=== PATIENT | female | born 1975 | race Two or more races ===

== ENCOUNTER 2016-10-13 09:01 | Emergency (ER) | payer MEDICAID, OTHER ==
[~2016-10-13] VITALS: Ht 157.5 cm; Wt 77.4 kg
[2016-10-13] MEDS ORDERED: SODIUM CHLORIDE FLUSH 10ML SYR IVF ONE (09:30)
[2016-10-13] MEDS ORDERED: ONDANSETRON 2MG/ML, 2ML IVPush ONE (09:30)
[2016-10-13] MEDS ORDERED: MECLIZINE CHEWABLE 25 MG TAB PO ONE (09:30)
[2016-10-13] MEDS ORDERED: PLEASE ENTER ALLERGIES MC SCH ×2 (09:30)
[2016-10-13] MEDS ORDERED: SODIUM CHLORIDE 0.9% 1,000ML IVBOLUS ONE (09:30)
[2016-10-13 09:37] LABS: HEMATOCRIT 38.8 % (34.6-47.8); WHITE BLOOD COUNT 12.1 x10^3/uL (3.4-10)
[2016-10-13] MEDS ORDERED: ONDANSETRON 2MG/ML, 2ML ONE (09:37)
[2016-10-13] MEDS ORDERED: MECLIZINE CHEWABLE 25 MG TAB ONE (09:37)
[2016-10-13] MEDS ORDERED: DIAZEPAM 5 MG/ML, 2ML ONE (09:37)
[2016-10-13 09:50] LABS: ASPARTATE AMINO TRANSFERASE 11 U/L (15-37); BLOOD UREA NITROGEN 22 mg/dL (7-18)
[2016-10-13] MEDS: DIAZEPAM 5 MG/ML, 2ML IVPush PRN ×2 (09:55→11:42)
[2016-10-13 12:42] VITALS: BP 106/59
== END 2016-10-13 12:44 | disposition home or self-care (01) ==
LOC: ED 11:05
DX: R42 Dizziness and giddiness (principal); R11.2 Nausea with vomiting, unspecified
CPT/HCPCS: 36415; 80053; 83690; 84703; 85025; 93005; 96361; 96374; 96375; 96376; 99285; J2405; J3360; J7030